=== PATIENT | female | born 1990 | race Caucasian/White ===

== ENCOUNTER → 2016-12-19 | Outpatient (CLI) | payer BC ==
[~2016-12-19] MED LIST: COLACE-DPS100 MG PO; DERMOPLAST SPRA56 GM TP; FEOSOL-DPS325 MG PO; MOTRIN-DPS800 MG PO; TUCKS1 EACH TP; TYLENOL #3 DPS1 TAB PO
== END | disposition home or self-care (01) ==
LOC: RAD.S 15:56
DX: E22.1 Hyperprolactinemia (principal); D35.2 Benign neoplasm of pituitary gland